=== PATIENT | male | born 1980 | race Caucasian/White ===

== ENCOUNTER 2020-04-23 20:21 | Emergency (ER) | payer MEDICAID ==
[~2020-04-23] VITALS: Ht 165.1 cm; Wt 72.6 kg
[2020-04-23 20:25] VITALS: BP_SYST 121
--- NOTE | 2020-04-23 21:38 | NUR ---
Patient to ER bed 2 to gown for evaluation. Side rails up.
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
--- NOTE | 2020-04-23 22:15 | NUR ---
Looking for patient on bed 2 and lobby.
--- NOTE | 2020-04-23 22:20 | NUR ---
Patient left without being seen.
== END 2020-04-23 22:20 | disposition left against medical advice (07) ==
LOC: SED 20:21
DX: M54.9 Dorsalgia, unspecified (principal); Z53.21 Procedure and treatment not carried out due to patient leaving prior to being seen by health care provider